=== PATIENT | female | born 1995 | race Caucasian/White ===

== ENCOUNTER 2019-06-27 09:37 | Emergency (ER) | payer OTHER ==
[2019-06-27 09:52] VITALS: BP 106/66; PULSE 69; TEMP 98.5; BMI 29.2
[2019-06-27] MEDS ORDERED: ONDANSETRON *ODT* 4 MG TABLET SL ONE (10:08)
[2019-06-27] MEDS ORDERED: ONDANSETRON *ODT* 4 MG TABLET ONE (10:09)
--- NOTE | 2019-06-27 10:12 | PDOC ---
History of Present Illness - General Chief Complaint: Nausea/Vomiting Stated Complaint: VOMITING Time Seen by Provider: 06/27/19 09:58 History Source: Patient Exam Limitations: Clinical Condition - History of Present Illness Initial Comments: 06/27/19 10:09 Patient with no significant past medical history present with complaint of 2- day history of diarrhea, nasal congestion, runny nose, nausea or vomiting with started this morning. Patient reported eating leftover last night from previous days. Denies recent travel but reports sick contact with family member with stomach virus few days ago. Denies fevers, chills, sore throat, abdominal pains, headaches, chest pain or shortness of breath. Denies any other symptoms. Patient did not take anything for symptoms Is this a multiple visit Asthma Patient?: No Timing/Duration: 24 hours Past History - Past Medical History Allergies/Adverse Reactions: Allergies Allergy/AdvReac Type Severity Reaction Status Date / Time No Known Allergies Allergy Verified 06/27/19 09:49 Home Medications: Ambulatory Orders Ipratropium [place] 2 spray NS BID PRN #1 spray 06/27/19 Loperamide HCl [Loperamide] 2 mg PO Q8H PRN #12 capsule 06/27/19 Ondansetron [Zofran *Odt*] 4 mg SL TID #21 od.tablet 06/27/19 Asthma: No Cancer: No Cardiac Disorders: No COPD: No CHF: No Diabetes: No HTN: No Seizures: No Thyroid Disease: No - Immunization History Td Vaccination: Yes Immunization Up to Date: Yes - Psycho Social/Smoking Cessation Hx Smoking Status: No Smoking History: Never smoked Years of Tobacco Use: 0 Number of Cigarettes Smoked Daily: 0 Cigars Per Day: 0 Information on smoking cessation initiated: No Hx Alcohol Use: No Drug/Substance Use Hx: No Substance Use Type: None Hx Substance Use Treatment: No Review of Systems - Review of Systems Able to Perform ROS?: Yes Is the patient limited Malian proficient: No Constitutional: No: Chills, Fever, Malaise HEENTM: Yes: Symptoms Reported, See HPI, Nose Congestion. No: Eye Pain, Blurred Vision, Tearing, Recent change in vision, Double Vision, Cataracts, Ear Pain, Ocular Prothesis, Ear Discharge, Nose Pain, Tinnitus, Nose Bleeding, Hearing Loss, Throat Pain, Throat Swelling, Mouth Pain, Dental Problems, Difficulty Swallowing, Mouth Swelling, Other Respiratory: Yes: Symptoms reported, See HPI, Cough. No: Orthopnea, Shortness of Breath, SOB with Exertion, SOB at Rest, Stridor, Wheezing, Productive cough, Hemoptysis, Other Cardiac (ROS): No: Symptoms Reported, See HPI, Chest Pain, Edema, Irregular Heart Rate, Lightheadedness, Palpitations, Syncope, Chest Tightness, Other ABD/GI: Yes: Symptoms Reported, See HPI, Diarrhea, Nausea, Vomiting. No: Blood Streaked Bowels, Constipated, Poor Appetite, Indigestion, Abdominal cramping Musculoskeletal: No: Symptoms Reported Integumentary: No: Symptoms Reported, Rash All Other Systems: Reviewed and Negative *Physical Exam - Vital Signs Last Vital Signs Temp Pulse Resp BP Pulse Ox 98.5 F 69 17 106/66 99 06/27/19 09:49 06/27/19 09:49 06/27/19 09:49 06/27/19 09:49 06/27/19 09:49 - Physical Exam 06/27/19 10:10 GENERAL: Well developed, well nourished. Awake and alert. No acute distress. HEENT: Normocephalic, atraumatic. PERRLA, EOMI. No conjunctival pallor. Sclera are non-icteric. Moist mucous membranes. Oropharynx is clear. NECK: Supple. Full ROM. CARDIOVASCULAR: Regular rate and rhythm. No murmurs, rubs, or gallops. Distal pulses are 2+ and symmetric. PULMONARY: No evidence of respiratory distress. Lungs clear to auscultation bilaterally. No wheezing, rales or rhonchi. ABDOMINAL: Soft. Non-tender. Non-distended. No rebound or guarding. No organomegaly. Normoactive bowel sounds. MUSCULOSKELETAL Normal range of motion at all joints. SKIN: Warm and dry. Normal capillary refill. No rashes. No cyanosis NEUROLOGICAL: Alert, awake, appropriate. Gait is normal without ataxia. PSYCHIATRIC: Cooperative. Good eye contact. Appropriate mood General Appearance: Yes: Nourished, Appropriately Dressed. No: Apparent Distress Medical Decision Making - Medical Decision Making 06/27/19 10:11 Patient with no significant past medical history present with complaint of 2- day history of diarrhea, nasal congestion, runny nose, nausea or vomiting with started this morning. Patient reported eating leftover last night from previous days. Denies recent travel but reports sick contact with family member with stomach virus few days ago. Denies fevers, chills, sore throat, abdominal pains, headaches, chest pain or shortness of breath. Denies any other symptoms. Patient did not take anything for symptoms Clinical exam unremarkable with no abdominal tenderness, lungs clear to auscultation and no pharyngeal erythema. Patient symptoms likely viral URI with viral gastroenteritis. Urine hCG and UA ordered to rule out urine infection as LMP is a month ago 06/27/19 10:46 Urine hCG positive. Results discussed with patient and Zofran Rx sent as needed for nausea and vomiting. Patient will follow-up with [facility] for follow-up. Patient stable for discharge Discharge - Discharge Information Problems reviewed: Yes Clinical Impression/Diagnosis: Viral syndrome, Viral URI, Viral gastroenteritis, test positive Condition: Stable Disposition: HOME - Admission No - Additional Discharge Information Prescriptions: Ipratropium [place] 2 spray NS BID PRN #1 spray PRN Reason: nasal congestion Loperamide HCl [Loperamide] 2 mg PO Q8H PRN #12 capsule PRN Reason: diarrhea Ondansetron [Zofran *Odt*] 4 mg SL TID #21 od.tablet - Follow up/Referral - Patient Discharge Instructions Patient Printed Discharge Instructions: DI for Viral Upper Respiratory Infection -- Adult, DI for Diarrhea and Traveler's Diarrhea -- Adult Additional Instructions: Your urine lab was normal. symptoms likely caused by viral infection and should resolve in a few days. Take prescribed medication as needed for diarrhea. Increase fluid intake. Follow-up with primary care as needed - Post Discharge Activity Work/Back to School Note: Back to Work
[2019-06-27 10:21] LABS: PH,URINE 6.5 (5.0-8.0); URINE APPEARANCE CLEAR; URINE BILIRUBIN NEGATIVE (NEGATIVE); URINE COLOR YELLOW; URINE GLUCOSE (UA) NEGATIVE (NEGATIVE); URINE KETONE NEGATIVE (NEGATIVE); URINE LEUK ESTERASE NEGATIVE (NEGATIVE); URINE NITRITE NEGATIVE (NEGATIVE); URINE PROTEIN NEGATIVE (NEGATIVE); URINE UROBILINOGEN 0.2 mg/dL (0.2-1.0)
== END 2019-06-27 11:12 | disposition home or self-care (01) ==
LOC: JERFT 09:37
DX: O99.89 Other specified diseases and conditions complicating pregnancy, childbirth and the puerperium (principal); J06.9 Acute upper respiratory infection, unspecified; A08.4 Viral intestinal infection, unspecified; B97.89 Other viral agents as the cause of diseases classified elsewhere; Z3A.00 Weeks of gestation of pregnancy not specified
CPT/HCPCS: 81003; 84703; 99282-25; Q0162

== ENCOUNTER 2020-07-19 14:40 | Emergency (ER) | payer OTHER ==
[2020-07-19 14:46] VITALS: BP 119/80; PULSE 84; TEMP 97.9; BMI 29.2
[2020-07-19 15:51] LABS: THROAT:GRP A STREP ANTIGEN Negative (Negative)
== END 2020-07-19 16:43 | disposition home or self-care (01) ==
LOC: JER 14:40
DX: U07.1 COVID-19 (principal); J01.90 Acute sinusitis, unspecified; J02.9 Acute pharyngitis, unspecified
CPT/HCPCS: 71046-TC-FY; 87070; 87077; 87880; 99284-25; C9803; U0003

== ENCOUNTER 2021-12-27 13:54 | Emergency (ER) | payer OTHER ==
[2021-12-27 14:25] VITALS: BP 102/68; PULSE 65; BMI 28.3
[2021-12-27] MEDS ORDERED: KETOROLAC TROMETHAMINE 30 MG/1 ML VIAL IM ONE (17:37)
[2021-12-27] MEDS ORDERED: diazePAM 5 MG TABLET PO ONE (17:37)
[2021-12-27] MEDS ORDERED: diazePAM 5 MG TABLET ONE (18:00)
[2021-12-27] MEDS ORDERED: KETOROLAC TROMETHAMINE 30 MG/1 ML VIAL ONE (18:00)
[2021-12-27 18:56] LABS: BASO % 0.4 % (0-2.0); EOS % 0.3 % (0-4.5); HEMATOCRIT 39.4 % (32.4-45.2); HEMOGLOBIN 13.4 GM/dL (10.7-15.3); LYMPH % 39.8 % (8-40); MCH 30.8 pg (25.7-33.7); MCHC 33.9 g/dl (32.0-36.0); MEAN CELL VOLUME 90.7 fl (80-96); MEAN PLT VOLUME 8.3 fl (7.5-11.1); MONO % 9.8 % (3.8-10.2); NEUT % 49.7 % (42.8-82.8); PLATELET COUNT 281 10^3/uL (134-434); RBC 4.34 M/mm3 (3.60-5.2); WHITE BLOOD COUNT 6.1 K/mm3 (4.0-10.0)
[2021-12-27 18:59] LABS: CHLORIDE 105 mmol/L (98-107); SODIUM 139 mmol/L (136-145)
[2021-12-27 19:01] LABS: ALBUMIN 4.1 g/dl (3.4-5.0); ANION GAP 6 MMOL/L (8-16); CALCIUM 9.2 mg/dL (8.5-10.1); CO2 29 mmol/L (21-32); GLUCOSE,RANDOM 84 mg/dL (74-106)
[2021-12-27 19:02] LABS: BLOOD UREA NITROGEN 12.8 mg/dL (7-18)
[2021-12-27 19:04] LABS: SGPT/ALT 19 U/L (13-61)
[2021-12-27 19:05] LABS: CREATININE 0.7 mg/dL (0.55-1.3); SGOT/AST 13 U/L (15-37)
[2021-12-27 19:06] LABS: BILIRUBIN,TOTAL 0.8 mg/dL (0.2-1); TOT PROT 7.2 g/dl (6.4-8.2)
[2021-12-27 19:07] LABS: ALK PHOS 54 U/L (45-117)
== END 2021-12-27 19:49 | disposition home or self-care (01) ==
LOC: JER 13:54
PROC: 3E023GC Introduction of Other Therapeutic Substance into Muscle, Percutaneous Approach (ICD-10-PCS; principal; 2021-12-27)
DX: M79.602 Pain in left arm (principal); R29.818 Other symptoms and signs involving the nervous system
CPT/HCPCS: 36415; 80053; 84484; 85025; 93005; 93010; 96372; 99284-25

== ENCOUNTER 2022-06-17 09:21 | Emergency (ER) | payer OTHER ==
[2022-06-17 09:27] VITALS: BP 105/75; PULSE 88; RESP 18; TEMP 98; BMI 30.2
== END 2022-06-17 10:29 | disposition home or self-care (01) ==
LOC: JER 09:21
DX: R68.83 Chills (without fever) (principal); M79.10 Myalgia, unspecified site
CPT/HCPCS: 0241U-QW; 71046-TC-FY; 99284-25

== ENCOUNTER 2023-02-11 16:30 | Emergency (ER) | payer OTHER ==
[2023-02-11 16:34] VITALS: BP 108/71; PULSE 70; RESP 20; TEMP 98.6; BMI 29.2
== END 2023-02-11 17:33 | disposition home or self-care (01) ==
LOC: JERFT 16:30
DX: S90.415A Abrasion, left lesser toe(s), initial encounter (principal); L08.9 Local infection of the skin and subcutaneous tissue, unspecified; X58.XXXA Exposure to other specified factors, initial encounter; Y99.0 Civilian activity done for income or pay
CPT/HCPCS: 99283-25

== ENCOUNTER 2023-07-02 13:05 | Emergency (ER) | payer OTHER ==
[2023-07-02 13:22] VITALS: BP 113/75; PULSE 105; RESP 18; TEMP 100; BMI 31.1
[2023-07-02] MEDS ORDERED: ALBUTEROL SO4 0.083% IH SOL 2.5 MG/3 ML VIAL.NEB. NEB ONE ×2 (13:52→13:59)
[2023-07-02] MEDS ORDERED: IBUPROFEN 400 MG TABLET (FP) PO ONE ×2 (13:54→13:58)
[2023-07-02 14:25] LABS: THROAT:GRP A STREP NOT DETECTED (NOTDETECTED)
== END 2023-07-02 15:02 | disposition home or self-care (01) ==
LOC: JERFT 13:05
PROC: 3E0F7GC Introduction of Other Therapeutic Substance into Respiratory Tract, Via Natural or Artificial Opening (ICD-10-PCS; principal; 2023-07-02)
DX: R50.9 Fever, unspecified (principal); M79.10 Myalgia, unspecified site; R51.9 Headache, unspecified; R05.9 Cough, unspecified; R07.89 Other chest pain; J10.1 Influenza due to other identified influenza virus with other respiratory manifestations; J20.9 Acute bronchitis, unspecified; Z20.822 Contact with and (suspected) exposure to COVID-19
CPT/HCPCS: 0241U-QW; 71046-TC-FY; 87651; 99284-25

== ENCOUNTER 2024-12-27 17:24 | Emergency (ER) | payer SELFPAY ==
[2024-12-27 17:40] VITALS: BP 124/82; PULSE 77; RESP 18; TEMP 97.9; BMI 32.9
[2024-12-27] MEDS ORDERED: DIPHTH,PERTUSS(ACELL),TET 0.5 ML DISP.SYRIN IM ONE (18:14)
[2024-12-27] MEDS: DIPHTH,PERTUSS(ACELL),TET 0.5 ML DISP.SYRIN IM ONE (18:18)
[2024-12-27] MEDS ORDERED: CEPHALEXIN MONOHYDRATE 500 MG CAPSULE (UD) ONE (18:35)
[2024-12-27] MEDS: CEPHALEXIN MONOHYDRATE 500 MG CAPSULE (UD) PO ONE (18:37)
[2024-12-27] MEDS ORDERED: ACETAMINOPHEN 500 MG TABLET (FP) ONE (19:22)
[2024-12-27] MEDS: ACETAMINOPHEN 500 MG TABLET (FP) PO ONE (19:24)
== END 2024-12-27 20:43 | disposition home or self-care (01) ==
LOC: JERFT 17:24
PROC: 3E0234Z Introduction of Serum, Toxoid and Vaccine into Muscle, Percutaneous Approach (ICD-10-PCS; principal; 2024-12-27)
DX: S61.411A Laceration without foreign body of right hand, initial encounter (principal); Z23 Encounter for immunization; W25.XXXA Contact with sharp glass, initial encounter; Y99.0 Civilian activity done for income or pay
CPT/HCPCS: 73130-TC-RT-FY; 90715; 99284-25